=== PATIENT | female | born 1955 | race Caucasian/White ===

== ENCOUNTER 2021-01-19 17:28 | Emergency (ER) | payer MEDICARE, MEDICAID, SELFPAY ==
--- NOTE | ~2021-01-19 | CT_ITS ---
EXAMINATION: CT ABDOMEN AND PELVIS WITH CONTRAST CLINICAL INFORMATION: lower abd ttp >LLQ, +RLQ ttp COMPARISON: 01/17/2014 TECHNIQUE: Multidetector volumetric imaging was performed from the superior aspect of the liver through the pubic symphysis following administration of 85 cc of Omnipaque intravenous contrast Sagittal and coronal reformatted images were obtained on the technologist workstation.. This CT examination was performed using dose optimization techniques as appropriate, variously including the following: *Automated exposure control *Adjustment of mA and/or kV according to patient size (this includes techniques or standardized protocols for targeted exams where dose is matched to indication/reason for exam; i.e. extremities or head) *Use of iterative reconstruction technique DLP: 488 mGy-cm FINDINGS: LUNG BASES: Bibasilar dependent linear atelectasis or scarring. LIVER, GALLBLADDER, AND BILIARY TREE: The liver is normal in size, shape, and attenuation. No focal hepatic lesion or biliary ductal dilatation is present. Possible tiny adenomyomatosis of the gallbladder fundus PANCREAS: Unremarkable. SPLEEN: Unremarkable. ADRENAL GLANDS: Unremarkable. KIDNEYS AND URETERS: The kidneys are normal in size, shape, and attenuation. No hydronephrosis, hydroureter, or calculi seen. No perinephric stranding. BLADDER: Unremarkable. GASTROINTESTINAL TRACT: There is scattered colonic diverticulosis but no colonic wall thickening or pericolonic inflammatory change to suggest diverticulitis. Normal-appearing appendix in the right lower quadrant. Visualized small bowel is unremarkable ABDOMINAL WALL: No significant hernia is appreciated. LYMPHOVASCULAR STRUCTURES: No lymphadenopathy. The aorta is unremarkable. PELVIC VISCERA: Unremarkable. OSSEOUS STRUCTURES: Unremarkable. CT/CT abdomen pelvis w con IMPRESSION: Mild chronic appearing changes. No definitive acute intra-abdominal process.
[2021-01-19 17:32] VITALS: BP 168/76; PULSE 89; RESP 18; TEMP 36.5; O2SAT 99; BMI 26.6
[2021-01-19 18:09] LABS: MANUAL DIFF FLAG NO
[2021-01-19 18:13] LABS: Glucose Urine UA NEG (NEG); Leukocyte Esterase Urine NEG (NEG); Nitrite Urine NEG (NEG); Specific Gravity - Urine <= 1.005 (1.005-1.025); Urine Blood NEG (NEG); Urine Ketones NEG (NEG); Urine Protein NEG (NEG-TRACE)
[2021-01-19 18:14] LABS: Appearance Urine CLEAR; Color Urine STRAW
[2021-01-19 18:26] LABS: Basophils Percent Auto 0.5 % (0-2); Eosinophils Absolute Auto 0.2 X10*3/uL (0.0-0.4); Eosinophils Percent Auto 2.2 % (0-4); Hematocrit 39.5 % (37-47); Hemoglobin 12.9 g/dl (12.0-16.0); Imm Gran Abs Auto 0.02 X10*3/uL (0.00-0.03); Imm Gran Pct Auto 0.2 % (0.0-0.4); Lymphocytes Absolute Auto 3.3 X10*3/uL (1.2-4.9); Lymphocytes Percent Auto 40.8 % (20-40); Mean Corpuscular HGB Conc 32.7 g/dl (31.0-35.0); Mean Corpuscular Hemoglobin 28.9 pg (27.0-33.0); Mean Corpuscular Volume 88.6 fL (80-98); Mean Platelet Volume 9.8 fL (9.4-12.3); Monocytes Absolute Auto 0.9 X10*3/uL (0.1-1.2); Monocytes Percent Auto 10.5 % (2-11); Neutrophils Absolute Auto 3.7 X10*3/uL (2.0-8.3); Neutrophils Percent Auto 45.8 % (45-73); Platelet Count 308 X10*3/uL (160-400); Red Blood Count 4.46 X10*6/uL (4.20-5.50); Red Cell Distribution Width 13.3 % (11.0-16.0); White Blood Count 8.2 X10*3/uL (4.8-10.8)
[2021-01-19 18:36] LABS: Alanine Aminotransferase 19 U/L (0-31); Albumin Level 4.5 g/dL (3.5-5.0); Alkaline Phosphatase 133 U/L (39-117); Anion Gap 13 (12-20); Aspartate Amino Transferase 15 U/L (5-31); Bilirubin Total 0.6 mg/dL (0.0-1.0); Blood Urea Nitrogen 13 mg/dL (9-16); Carbon Dioxide 26 mmol/L (22-29); Chloride 107 mmol/L (96-108); Creatinine Clr Calc Pharmacy 64.9; Estimated Glomerular Filt Rate > 60; Glucose Random 86 mg/dL (60-115); Lipase 16 U/L (8-78); Potassium 3.9 mmol/L (3.3-5.1); Sodium 142 mmol/L (135-145); Total Protein 7.4 g/dL (6.5-8.0)
[2021-01-19 20:00] VITALS: BP 150/68; PULSE 76; RESP 16; O2SAT 99
[2021-01-19] MEDS: 0.9 % Sodium Chloride 1,000 ML 999 ML IVCONT (20:23)
[2021-01-19] MEDS: Ketorolac Tromethamine 15 MG/ML VIAL IVPUSH (20:28)
[2021-01-19] MEDS: iohexoL 350 MG/ML 100 ML INFUS..BTL IV (21:03)
--- NOTE | 2021-01-19 21:45 | ED.ABDPAIN ---
HPI - Abdominal Pain General Chief Complaint: Abdominal Pain Stated Complaint: abd pain Time Seen by Provider: 01/19/21 20:00 Source: patient Mode of arrival: ambulatory History of Present Illness HPI narrative: 65-year-old female with a past medical history of fibromyalgia, hyperlipidemia, hypertension, presenting to the ED complaining of lower abdominal discomfort worsening over the past 3 days with radiation from right flank to right lower extremity. Also reports dysuria. Denies fever, chills, nausea/vomiting, diarrhea, constipation, hematuria MD elicited complaint: abdominal pain Related Data Previous Rx's Medication Instructions Recorded dicyclomine 20 mg PO QID PRN #14 tab 01/19/21 Allergies Allergy/AdvReac Type Severity Reaction Status Date / Time No Known Allergies Allergy Verified 01/19/21 17:31 Review of Systems Review of Systems Constitutional: No Fever, No Chills Cardiovascular: No Chest Pain, No SOB Respiratory: No Cough, No Dyspnea Gastrointestinal: No Nausea, No Vomiting, No Diarrhea, No Constipation, + Abdominal pain Genitourinary: No irregular bleeding, + Dysuria, No Urinary Frequency, No Hematuria, No Urinary Incontinence, + Flank Pain Musculoskeletal: No joint pain, No Myalgias, No Joint Swelling Skin: No Skin Lesions, No rash Neuro: No Weakness, No Numbness Yes all other systems are reviewed and are negative Physical Exam Vital Signs: Vital Signs: Last Vital Signs Temp 97.7 F 01/19/21 17:32 Pulse 76 01/19/21 20:00 Resp 16 01/19/21 20:00 BP 150/68 H 01/19/21 20:00 Pulse Ox 99 01/19/21 20:00 Body Mass Index 26.6 Const: General: cooperative, healthy appearing and no acute distress Orientation/consciousness: patient oriented x3 Limitations: no limitations HENMT: Head: Yes normal to inspection Ears: hearing grossly normal bilaterally General nose exam: Normal external nose present Face and sinus: Yes normal facial exam Eyes: General: appearance normal, both eyes and all related structures EOM: EOMs intact bilaterally Neck: Neck: Yes normal visual inspection Resp: Effort & Inspection: normal respiratory effort Cardio: Rate: regular rate GI: Inspection: Yes normal to inspection Palpation (GI): Soft to palpation, Tenderness to palpation present (GI) (lower abdomen) in the LLQ, no guarding and not rigid : General: Yes no CVA tenderness Back/Spine/Pelvis: Back: no CVA tenderness Skin: Rashes: no rashes Wounds: no wounds Neuro: General: patient oriented x3 Gait exam (Neuro): Normal gait present Extrem: General: Yes normal to inspection Course Course Course Narrative: -no leukocytosis, labs otherwise unremarkable, UA negative CT abdomen pelvis w con IMPRESSION: Mild chronic appearing changes. No definitive acute intra-abdominal process. >> results discussed with patient and daughter at bedside including worrisome signs and symptoms and strict return precautions. Patient verbalized understanding feel safe for discharge home MDM - Abdominal Pain MDM Narrative Medical decision making narrative: 65-year-old female with a past medical history of fibromyalgia, hyperlipidemia, hypertension, presenting to the ED complaining of lower abdominal discomfort worsening over the past 3 days with radiation from right flank to right lower extremity. On exam VSS, NAD/appearing him abdomen soft with lower/LLQ ttp, no rebound or guarding, no CVAT. Concern for diverticulitis vs appendicitis vs renal stone vs UTI/pyelo. Unlikely pancreatitis/cholecystitis or lithiasis Plan: Labs, UA, CT AP, IVF, reassess Medical Records Attestation: I reviewed the patient's medical records. Lab Data Attestation: I reviewed the patient's lab results. Result diagrams: 01/19/21 18:03 01/19/21 18:03 Labs: Lab Results 01/19/21 01/19/21 01/19/21 Range/Units 18:03 18:03 18:03 WBC 8.2 (4.8-10.8) X10*3/uL RBC 4.46 (4.20-5.50) X10*6/uL Hgb 12.9 (12.0-16.0) g/dl Hct 39.5 (37-47) % MCV 88.6 (80-98) fL MCH 28.9 (27.0-33.0) pg MCHC 32.7 (31.0-35.0) g/dl RDW 13.3 (11.0-16.0) % Plt Count 308 (160-400) X10*3/uL MPV 9.8 (9.4-12.3) fL Immature Gran % (Auto) 0.2 (0.0-0.4) % Neut % (Auto) 45.8 (45-73) % Lymph % (Auto) 40.8 H (20-40) % [place] % (Auto) 10.5 (2-11) % Eos % (Auto) 2.2 (0-4) % Baso % (Auto) 0.5 (0-2) % Lymph # (Auto) 3.3 (1.2-4.9) X10*3/uL [place] # (Auto) 0.9 (0.1-1.2) X10*3/uL Eos # (Auto) 0.2 (0.0-0.4) X10*3/uL Baso # (Auto) 0.0 (0.0-0.2) X10*3/uL Abs Immat Gran (auto) 0.02 (0.00-0.03) X10*3/uL Absolute Neuts (auto) 3.7 (2.0-8.3) X10*3/uL Absolute Nucleated RBC 0.000 (0.0-0.012) X10*3/uL Nucleated RBC % (auto) 0.0 (0.0-0.2) /100WBC Hold Blue Top SEE NOTE Sodium (135-145) mmol/L Potassium (3.3-5.1) mmol/L Chloride (96-108) mmol/L Carbon Dioxide (22-29) mmol/L Anion Gap (12-20) BUN (9-16) mg/dL Creatinine (0.5-1.4) mg/dL Estim Creat Clear Calc Estimated GFR Random Glucose (60-115) mg/dL Calcium (8.4-10.2) mg/dL Total Bilirubin (0.0-1.0) mg/dL AST (5-31) U/L ALT (0-31) U/L Alkaline Phosphatase (39-117) U/L Total Protein (6.5-8.0) g/dL Albumin (3.5-5.0) g/dL Lipase 16 (8-78) U/L Urine Color Urine Appearance Urine pH (5.0-8.0) Ur Specific [place] (1.005-1.025) Urine Protein (NEG-TRACE) MG/DL Urine Glucose (UA) (NEG) MG/DL Urine Ketones (NEG) MG/DL Urine Blood (NEG) Urine Nitrite (NEG) Ur Leukocyte Esterase (NEG) 01/19/21 01/19/21 Range/Units 18:03 18:03 WBC (4.8-10.8) X10*3/uL RBC (4.20-5.50) X10*6/uL Hgb (12.0-16.0) g/dl Hct (37-47) % MCV (80-98) fL MCH (27.0-33.0) pg MCHC (31.0-35.0) g/dl RDW (11.0-16.0) % Plt Count (160-400) X10*3/uL MPV (9.4-12.3) fL Immature Gran % (Auto) (0.0-0.4) % Neut % (Auto) (45-73) % Lymph % (Auto) (20-40) % [place] % (Auto) (2-11) % Eos % (Auto) (0-4) % Baso % (Auto) (0-2) % Lymph # (Auto) (1.2-4.9) X10*3/uL [place] # (Auto) (0.1-1.2) X10*3/uL Eos # (Auto) (0.0-0.4) X10*3/uL Baso # (Auto) (0.0-0.2) X10*3/uL Abs Immat Gran (auto) (0.00-0.03) X10*3/uL Absolute Neuts (auto) (2.0-8.3) X10*3/uL Absolute Nucleated RBC (0.0-0.012) X10*3/uL Nucleated RBC % (auto) (0.0-0.2) /100WBC Hold Blue Top Sodium 142 (135-145) mmol/L Potassium 3.9 (3.3-5.1) mmol/L Chloride 107 (96-108) mmol/L Carbon Dioxide 26 (22-29) mmol/L Anion Gap 13 (12-20) BUN 13 (9-16) mg/dL Creatinine 0.75 (0.5-1.4) mg/dL Estim Creat Clear Calc 64.9 Estimated GFR > 60 Random Glucose 86 (60-115) mg/dL Calcium 10.0 (8.4-10.2) mg/dL Total Bilirubin 0.6 (0.0-1.0) mg/dL AST 15 (5-31) U/L ALT 19 (0-31) U/L Alkaline Phosphatase 133 H (39-117) U/L Total Protein 7.4 (6.5-8.0) g/dL Albumin 4.5 (3.5-5.0) g/dL Lipase (8-78) U/L Urine Color STRAW Urine Appearance CLEAR Urine pH 6.0 (5.0-8.0) Ur Specific [place] <= 1.005 (1.005-1.025) Urine Protein NEG (NEG-TRACE) MG/DL Urine Glucose (UA) NEG (NEG) MG/DL Urine Ketones NEG (NEG) MG/DL Urine Blood NEG (NEG) Urine Nitrite NEG (NEG) Ur Leukocyte Esterase NEG (NEG) Discharge Plan Discharge Clinical Impression: Abdominal pain Qualifiers: Abdominal location: lower abdomen, unspecified Qualified Code(s): R10.30 - Lower abdominal pain, unspecified Patient Disposition: Home, Self-Care Instructions: Abdominal Pain (ED) Additional Instructions: Your blood work and CT scan were unremarkable today in the ED It is important that you follow up with her primary care doctor Elvin is in abdominal antispasmodic agent, take as needed for abdominal discomfort. In addition take Tylenol Motrin. If her symptoms persist or worsen, become more constant/unbearable, persistent nausea/vomiting or developed fever please return to the ED immediately Prescriptions: New dicyclomine 20 mg tablet 20 mg PO QID PRN (Reason: pain) Qty: 14 RF: 0 Referrals: Dorinda Salgado MD [Primary Care Provider] - 2 days PMF Past Medical History Attestation statement: The following information was validated with the patient. Medical History (Updated 01/19/21 @ 21:48 by SMITH Barrett) Fibromyalgia Hard of hearing High cholesterol HTN (hypertension) Social History Social History Advance Directives: No Patient : No
[2021-01-19 22:00] VITALS: BP 148/68; PULSE 76; RESP 16; TEMP 36.5; O2SAT 99
== END 2021-01-19 22:33 | disposition home or self-care (01) ==
PROVIDERS: Emergency Provider Internal Medicine; PCP Internal Medicine
DX: R10.30 Lower abdominal pain, unspecified (principal); I10 Essential (primary) hypertension; E78.5 Hyperlipidemia, unspecified
CPT/HCPCS: 36415; 74177; 80053; 81003; 83690; 85025; 96361; 96374; 99284; J1885; Q9967

== ENCOUNTER 2023-08-30 18:48 | Emergency (ER) | payer MEDICARE, MEDICAID, SELFPAY ==
[2023-08-30 19:03] VITALS: BP 154/88; BP 164/70; PULSE 87; PULSE 97; RESP 18; TEMP 37.1; O2SAT 97; BMI 26.6
--- NOTE | 2023-08-30 19:05 | ED.GENADULT ---
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 ? Patient indicates the right ear is the 1 bothering her. Her pain is 04/21 Related Data Home Medications Medication Instructions Recorded Confirmed citalopram 10 mg tablet 1 tab PO DAILY 11/17/21 06/24/23 varenicline 0.5 mg (11)-1 mg (42) See Rx Instructions PO PER PKG DIR 11/18/22 06/24/23 tablets in a dose pack (Chantix Starting Month Box) Previous Rx's Medication Instructions Recorded alendronate 70 mg tablet 70 mg PO QWEEK #14 tabs 01/13/23 zolpidem 10 mg tablet 10 mg PO BEDTIME PRN insomnia 30 04/01/23 days #90 tabs varenicline 1 mg tablet (Chantix 1 mg PO BID #56 tabs 06/13/23 Continuing Month Box) bictegravir 50 mg-emtricitabine 1 tab PO DAILY 30 days #30 tabs 07/08/23 200 mg-tenofovir alafenam 25 mg tablet (Biktarvy) BOOST VANILLA #60 ea 07/18/23 fluticasone propionate 50 2 spray intranasal DAILY #16 grams 08/26/23 mcg/actuation nasal spray,suspension (Flonase Allergy Relief) amoxicillin 500 mg capsule 500 mg PO TID #15 caps 08/30/23 Allergies Allergy/AdvReac Type Severity Reaction Status Date / Time No Known Allergies Allergy Verified 08/29/23 11:56 [No Known Allergies*] Review of Systems Constitutional: Constitutional: Denies chills, Denies fever(s) and Denies headache(s) ENT: Reports ear discharge, Reports otalgia and Denies headache(s) Cardiovascular: Cardiovascular: Denies dyspnea Respiratory: Respiratory: Reports cough and Denies dyspnea Gastrointestinal: Gastrointestinal: Denies abdominal pain, Denies nausea and Denies vomiting Neurologic: Denies headache(s) PMFSH Past Medical History Medical History Cough Well woman exam Skin cancer Hx LEEP (loop electrosurgical excision procedure), cervix, Tobacco abuse Osteoporosis ARIELLE II (cervical intraepithelial neoplasia II) Hypertriglyceridemia Insomnia Carpal tunnel syndrome, left HIV (human immunodeficiency virus infection) Surgical History Hx of colonoscopy History of orthopedic surgery History of surgery History of tubal ligation Family History Family History Father Lung cancer Mother Colon cancer CVD (cardiovascular disease) Stroke Maternal Grandmother Uterine cancer Sister Breast cancer Social History Social History Household Members: Spouse and Children Housing: Apartment Are you a primary eye care professional to a significant other at home: No Do you presently have visiting nurse or other home services: No Alcohol intake: never Comment: medicated in pacu Patient Tobacco Use Status: Former Tobacco user Quit Date: 02/2023 Tobacco use type: Cigarette Cigarettes Per Day: 3 Years Smoked: 20 stopped mid February 2023 e-Cigarette/Vaping Use: Never Used Second Hand Smoke Exposure: No service: No Current occupational status: disabled Cognitive needs: No Hearing needs: No Vision needs: Yes Physical Exam ED Const General: healthy appearing, comfortable, no acute distress, alert and awake Nutritional Appearance: well nourished Orientation/consciousness: patient oriented x3 HENMT Head: Yes normocephalic and Yes atraumatic Ears: right TM abnormal (TM rupture on right, no drainage), TM normal on the left and EAC's normal Eyes Eyelids: Yes eyelids normal Conjunctivae: conjunctivae normal Sclerae: sclerae normal Corneas: corneas normal Pupils: Equal, round and reactive pupils present EOM: EOMs intact bilaterally Neck Neck: Yes full ROM Resp Effort & Inspection: normal respiratory effort, able to speak in complete sentences, no audible wheezes and not labored Auscultation: clear to auscultation bilaterally Skin General skin exam: elasticity normal Neuro General: patient oriented x3 Cranial nerves: Yes Equal, round and reactive pupils present and Yes Bilaterally intact EOM present Cognition (Neuro): normal cognition Extrem Other: Moving all extremities well without any obvious deformities Medical Decision Making Medical Decision Making MDM Narrative: 67-year-old female presents for evaluation of right ear pain. On exam she has a right tympanic membrane rupture. She will be discharged with amoxicillin. Given return precautions. She will follow-up with ENT outpatient Differential Diagnosis Differential Diagnoses: The differential diagnosis associated with the presentation includes COVID-19 Tympanic membrane rupture Otitis media Otitis externa Discharge Plan Discharge Clinical Impression: COVID-19, Rupture of right tympanic membrane Patient Disposition: Home, Self-Care Instructions: Ruptured Eardrum (ED) Additional Instructions: You ruptured the eardrum on the right Do not get any water or stick anything including Q-tips in the right ear Take amoxicillin 3 times daily for 5 days Follow-up with Dr. Simmons, ENT Prescriptions: New amoxicillin 500 mg capsule 500 mg PO TID Qty: 15 0RF No Action zolpidem 10 mg tablet 10 mg PO BEDTIME PRN (Reason: insomnia) 30 Days Qty: 90 1RF varenicline [Chantix Continuing Month Box] 1 mg tablet 1 mg PO BID Qty: 56 1RF Biktarvy 50-200-25 mg tablet 1 tab PO DAILY 30 Days Qty: 30 3RF (DME) BOOST VANILLA See Rx Instructions .Route .MEDSUPPLY Qty: 60 12RF Rx Instructions: As directed fluticasone propionate [Flonase Allergy Relief] 50 mcg/actuation spray,suspension 2 spray intranasal DAILY Qty: 16 3RF Rx Instructions: administer into each nostril citalopram 10 mg tablet 1 tab PO DAILY varenicline [Chantix Starting Month Box] 0.5 mg (11)- 1 mg (42) tablets,dose pack See Rx Instructions PO PER PKG DIR Rx Instructions: PO PER PKG DIR alendronate 70 mg tablet 70 mg PO QWEEK Qty: 14 3RF Referrals: Richard Verdin [Physician] - (ruptured TM right)
== END 2023-08-30 21:15 | disposition home or self-care (01) ==
LOC: HO.ED 19:22
PROVIDERS: Emergency Provider Internal Medicine
DX: U07.1 COVID-19 (principal); H72.91 Unspecified perforation of tympanic membrane, right ear; B20 Human immunodeficiency virus [HIV] disease
CPT/HCPCS: 99282; 99283

== ENCOUNTER 2024-01-05 16:57 | Emergency (ER) | payer OTHER, SELFPAY ==
--- NOTE | ~2024-01-05 | CT_ITS ---
EXAMINATION: CT ABDOMEN AND PELVIS WITH CONTRAST CLINICAL INFORMATION: Abdominal pain. COMPARISON: 01/19/2021 TECHNIQUE: Multidetector volumetric images were obtained from the superior aspect of the liver through the pubic symphysis following administration 85 mL of Omnipaque 350 intravenous contrast. Sagittal and coronal reformatted images were obtained on the technologist's workstation. Oral contrast: No This CT examination was performed using dose optimization techniques as appropriate, variously including the following: *Automated exposure control *Adjustment of mA and/or kV according to patient size (this includes techniques or standardized protocols for targeted exams where dose is matched to indication/reason for exam; i.e. extremities or head) *Use of iterative reconstruction technique DLP: 454 mGy-cm FINDINGS: LUNG BASES: There is scarring at both lung bases. LIVER, GALLBLADDER, AND BILIARY TREE: The liver is normal in size, shape, and attenuation. No focal hepatic lesion or biliary ductal dilatation is present. The gallbladder is unremarkable with no evidence of radiopaque gallstones, gallbladder wall thickening, or obvious pericholecystic inflammatory changes. PANCREAS: Unremarkable. SPLEEN: Unremarkable. ADRENAL GLANDS: Unremarkable. KIDNEYS AND URETERS: The kidneys are normal in size, shape, and attenuation. No hydronephrosis, hydroureter, or calculi seen. No perinephric stranding. BLADDER: Unremarkable. GASTROINTESTINAL TRACT: Diffuse diverticulosis without evidence for acute diverticulitis. The appendix is visualized and is within normal limits. ABDOMINAL WALL: No significant hernia is appreciated. LYMPH NODES: Normal. VASCULAR: Unremarkable. PELVIC VISCERA: Unremarkable. OSSEOUS STRUCTURES: Unremarkable. CT/CT abdomen pelvis w IV con IMPRESSION: 1. No acute abnormality within the abdomen or pelvis. 2. Diverticulosis without evidence for acute diverticulitis. Fleischner guidelines were followed.
--- NOTE | ~2024-01-05 | XR_ITS ---
EXAMINATION: XR ABDOMEN KUB CLINICAL INDICATION: Constipation x6 days. COMPARISON: None available. TECHNIQUE: AP view of the abdomen. FINDINGS: There is abundant stool throughout the left side of the colon. There are no dilated loops of bowel to indicate obstruction. The sacroiliac joints and symphysis pubis are maintained. There is mild degenerative disease of the hips bilaterally. XR/XR KUB IMPRESSION: Nonobstructive bowel gas pattern. Abundant stool throughout the left colon.
[2024-01-05 17:16] VITALS: BP 155/68; PULSE 86; RESP 18; TEMP 36.6; O2SAT 96; BMI 26.1
--- NOTE | 2024-01-05 17:20 | ED.GENADULT ---
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 Patient reports that she has chronic constipation. She saw her primary doctor 13 days ago for constipation. She was prescribed Bentyl, Imodium if she has loose stools, MiraLax, and Senokot Patient reports that she stopped all medications because ?they were not helping. ? She reports that she use them for 3 days It seems that the patient did not understand that she was not supposed to use the Imodium unless she had loose stool She reports abdominal pain that radiates around to her back on both sides Denies any fevers, chills Denies any burning with urination She is continuing to pass gas Related Data Home Medications ?Medication ?Instructions ?Recorded ?Confirmed pregabalin 25 mg capsule 50 mg PO BID 01/05/24 01/05/24 Previous Rx's ?Medication ?Instructions ?Recorded dicyclomine 20 mg tablet 20 mg PO QID PRN pain #14 tabs 01/19/21 amoxicillin 500 mg capsule 500 mg PO TID #15 caps 08/30/23 lactulose 20 gram oral packet 20 g PO DAILY PRN constipation #14 01/06/24 ea Allergies Allergy/AdvReac Type Severity Reaction Status Date / Time No Known Allergies Allergy Verified 01/05/24 17:17 [No Known Allergies*] Review of Systems Constitutional: Constitutional: Denies chills and Denies fever(s) ENT: Denies sore throat Cardiovascular: Cardiovascular: Denies chest pain and Denies dyspnea Respiratory: Respiratory: Denies cough and Denies dyspnea Gastrointestinal: Gastrointestinal: Reports abdominal pain, Denies melena, Reports constipation, Denies nausea and Denies vomiting Musculoskeletal: Musculoskeletal: Reports back pain Integumentary/Breasts: Skin/Breast: Denies rash PMFSH Past Medical History Medical History (Updated 01/05/24 @ 23:43 by Kel Garcia) Cough Well woman exam Skin cancer Hx LEEP (loop electrosurgical excision procedure), cervix, Tobacco abuse Osteoporosis ARIELLE II (cervical intraepithelial neoplasia II) Hypertriglyceridemia Insomnia Carpal tunnel syndrome, left HIV (human immunodeficiency virus infection) High cholesterol HTN (hypertension) Fibromyalgia Hard of hearing Surgical History (Updated 08/30/23 @ 20:32 by Chloe Erazo) Hx of colonoscopy History of orthopedic surgery History of surgery History of tubal ligation Social History Social History Smoked in Last 30 Days: No Use of substances other than those prescribed or required for medical reasons: No Advance Directives: No Advance Directives Information Provided: No Do you have a plan to hurt others: No Plan Physical Exam ED Vital Signs: Vital Signs - 24 hr 01/05/24 17:16 01/05/24 21:05 01/05/24 22:32 Temperature 97.9 F 97 F 98.2 F Pulse Rate 86 88 71 Respiratory Rate 18 18 18 Blood Pressure 155/68 H 145/57 H 160/75 H Pulse Oximetry 96 96 98 Oxygen Delivery Method Room Air Room Air Room Air 01/06/24 00:15 01/06/24 02:44 Temperature 97.6 F 97.9 F Pulse Rate 75 77 Respiratory Rate 18 18 Blood Pressure 141/72 H 130/59 L Pulse Oximetry 96 96 Oxygen Delivery Method Room Air Room Air BMI result Body Mass Index 26.1 Const General: healthy appearing, comfortable, no acute distress, alert and awake Nutritional Appearance: well nourished Orientation/consciousness: patient oriented x3 HENMT Head: Yes normocephalic and Yes atraumatic Eyes Eyelids: Yes eyelids normal Conjunctivae: conjunctivae normal Sclerae: sclerae normal Corneas: corneas normal Pupils: Equal, round and reactive pupils present EOM: EOMs intact bilaterally Neck Neck: Yes full ROM Resp Effort & Inspection: normal respiratory effort, able to speak in complete sentences and not labored Cardio Rate: regular rate Rhythm: regular rhythm GI Inspection: No distended Palpation (GI): Soft to palpation, not firm, nontender, no guarding and not rigid Skin General skin exam: elasticity normal Neuro General: patient oriented x3 Cranial nerves: Yes Equal, round and reactive pupils present and Yes Bilaterally intact EOM present Cognition (Neuro): normal cognition Extrem Other: Moving all extremities well without any obvious deformities Course Course Course Narrative: This is a rapid medical exam: Additional HPI, ROS, PE not included below will be deferred to primary provider. Patient is a 68-year-old female presenting to the emergency department with complaint of constipation, no bowel movement for the past 6 days. Symptoms not improved with [id number] medications. Plan: KUB Reevaluation(s) Reevaluation #1: The patient was signed out to me by the physician special education educational assistant pending the results of a CT scan of the abdomen and pelvis. The CT scan reading took awhile but ultimately came back as showing no acute process. I went to see the patient. She had fallen soundly asleep. I explained that the CT scan did not show any alarming findings and that we could continue with the plan for her to be discharged with a course of lactulose to help with any possible degree of constipation. The patient seemed comfortable with this plan. Time: 04:45 Medications Administered Discontinued Medications Generic Name Dose Route Start Last Admin Trade Name Freq PRN Reason Stop Dose Admin Iohexol 85 ml 01/05/24 23:32 01/05/24 23:32 Iohexol 350 Mg/Ml 100 Ml Infus..Btl IV 01/05/24 23:33 85 ml ONCE ONE Administration Medical Decision Making Medical Decision Making [facility] Narrative: 68-year-old female presents for evaluation of constipation, abdominal pain. She does report a history of chronic constipation. Based on history it seems that she has been using the Imodium in addition to the MiraLax and Senokot. I educated the patient on this. She has outpatient discharge instructions from her PCP who recommended a CT scan of the abdomen pelvis. Given the the patient presents with worsening abdominal pain and constipation I ordered the CT scan of the abdomen pelvis. Her KUB shows left-sided constipation. There is no stool ball or obstructive pattern Differential Diagnosis Differential Diagnoses: The differential diagnosis associated with the presentation includes Constipation Fecal impaction Bowel obstruction Medication noncompliance Lab Data [facility] Lab Attestation statement: I reviewed the patient's lab results. No leukocytosis or anemia. Normal platelet count. No significant electrolyte abnormalities. Renal function within normal limits 01/05/24 22:32 01/05/24 22:32 Labs: Lab Results 01/05/24 Range/Units 22:32 WBC 7.8 (4.8-10.8) X10*3/uL RBC 4.36 (4.20-5.50) X10*6/uL Hgb 12.7 (12.0-16.0) g/dl Hct 38.0 (37.0-47.0) % MCV 87.2 (80.0-98.0) fL MCH 29.1 (27.0-33.0) pg MCHC 33.4 (31.0-35.0) g/dl RDW 13.2 (11.0-16.0) % Plt Count 230 (160-400) X10*3/uL MPV 9.7 (9.4-12.3) fL Immature Gran % (Auto) 0.1 (0.0-0.4) % Neut % (Auto) 49.1 (45-73) % Lymph % (Auto) 38.5 (20-40) % [place] % (Auto) 10.4 (2-11) % Eos % (Auto) 1.5 (0-4) % Baso % (Auto) 0.4 (0-2) % Lymph # (Auto) 3.0 (1.2-4.9) X10*3/uL [place] # (Auto) 0.8 (0.1-1.2) X10*3/uL Eos # (Auto) 0.1 (0.0-0.4) X10*3/uL Baso # (Auto) 0.0 (0.0-0.2) X10*3/uL Abs Immat Gran (auto) 0.01 (0.00-0.03) X10*3/uL Absolute Neuts (auto) 3.8 (2.0-8.3) x10*3/uL Absolute Nucleated RBC 0.000 (0.0-0.012) X10*3/uL Nucleated RBC % (auto) 0.0 (0.0-0.2) /100WBC Sodium 143 (135-145) mmol/L Potassium 4.0 (3.3-5.1) mmol/L Chloride 111 H (96-108) mmol/L Carbon Dioxide 26 (22-29) mmol/L Anion Gap 10 L (12-20) BUN 9 (9-16) mg/dL Creatinine 0.70 (0.5-1.4) mg/dL Estim Creat Clear Calc 68.9 Estimated GFR > 60 Random Glucose 150 H (60-115) mg/dL Calcium 9.7 (8.4-10.2) mg/dL Total Bilirubin 0.5 (0.0-1.0) mg/dL AST 17 (5-31) U/L ALT 17 (0-31) U/L Alkaline Phosphatase 109 (39-117) U/L Total Protein 7.1 (6.5-8.0) g/dL Albumin 4.1 (3.5-5.0) g/dL Lipase 40 (8-78) U/L Independent Interpretation I performed an independent interpretation of an: Plain X-Ray (Agree with Radiology interpretation, left-sided stool burden.) Radiology Impression Discussion of test interpretation with radiology: I have reviewed the radiologist's reading. (Nonobstructive bowel gas pattern. Abundant stool in the left colon) Discharge Plan Discharge Clinical Impression: Constipation Patient Disposition: Home, Self-Care Instructions: Constipation (ED) Additional Instructions: Continue taking MiraLax every night for the next 2 weeks. Increase fluid and fiber intake in your diet. Stop using the Imodium You may use lactulose as needed until you have more than 3 bowel movements Follow-up with your primary doctor, return for new or worsening symptoms Prescriptions: New lactulose 20 gram packet 20 g PO DAILY PRN (Reason: constipation) Qty: 14 0RF No Action dicyclomine 20 mg tablet 20 mg PO QID PRN (Reason: pain) Qty: 14 0RF amoxicillin 500 mg capsule 500 mg PO TID Qty: 15 0RF pregabalin 25 mg capsule 50 mg PO BID Print Language: Kuwaiti
[2024-01-05 21:05] VITALS: BP 145/57; PULSE 88; RESP 18; TEMP 36.1; O2SAT 96
[2024-01-05 22:32] VITALS: BP 160/75; PULSE 71; RESP 18; TEMP 36.8; O2SAT 98
[2024-01-05 22:36] LABS: MANUAL DIFF FLAG NO
[2024-01-05 22:37] LABS: Basophils Percent Auto 0.4 % (0-2); Eosinophils Absolute Auto 0.1 X10*3/uL (0.0-0.4); Eosinophils Percent Auto 1.5 % (0-4); Hemoglobin 12.7 g/dl (12.0-16.0); Imm Gran Abs Auto 0.01 X10*3/uL (0.00-0.03); Imm Gran Pct Auto 0.1 % (0.0-0.4); Lymphocytes Percent Auto 38.5 % (20-40); Mean Corpuscular HGB Conc 33.4 g/dl (31.0-35.0); Mean Corpuscular Hemoglobin 29.1 pg (27.0-33.0); Mean Corpuscular Volume 87.2 fL (80.0-98.0); Mean Platelet Volume 9.7 fL (9.4-12.3); Monocytes Absolute Auto 0.8 X10*3/uL (0.1-1.2); Monocytes Percent Auto 10.4 % (2-11); Neutrophils Absolute Auto 3.8 x10*3/uL (2.0-8.3); Neutrophils Percent Auto 49.1 % (45-73); Platelet Count 230 X10*3/uL (160-400); Red Blood Count 4.36 X10*6/uL (4.20-5.50); Red Cell Distribution Width 13.2 % (11.0-16.0); White Blood Count 7.8 X10*3/uL (4.8-10.8)
[2024-01-05 22:50] LABS: Alanine Aminotransferase 17 U/L (0-31); Albumin Level 4.1 g/dL (3.5-5.0); Alkaline Phosphatase 109 U/L (39-117); Anion Gap 10 (12-20); Aspartate Amino Transferase 17 U/L (5-31); Bilirubin Total 0.5 mg/dL (0.0-1.0); Blood Urea Nitrogen 9 mg/dL (9-16); Calcium 9.7 mg/dL (8.4-10.2); Carbon Dioxide 26 mmol/L (22-29); Chloride 111 mmol/L (96-108); Creatinine Clr Calc Pharmacy 68.9; Estimated Glomerular Filt Rate > 60; Glucose Random 150 mg/dL (60-115); Lipase 40 U/L (8-78); Sodium 143 mmol/L (135-145); Total Protein 7.1 g/dL (6.5-8.0)
[2024-01-05] MEDS: iohexoL 350 MG/ML 100 ML INFUS..BTL 85 ML IV (23:32)
[2024-01-06 00:15] VITALS: BP 141/72; PULSE 75; RESP 18; TEMP 36.4; O2SAT 96
[2024-01-06 02:44] VITALS: BP 130/59; PULSE 77; RESP 18; TEMP 36.6; O2SAT 96
[2024-01-06 04:50] VITALS: BP 116/55; PULSE 77; RESP 18; TEMP 36.5; O2SAT 94
[2024-01-06 04:52] VITALS: BP 116/55; PULSE 77; RESP 18; TEMP 36.5; O2SAT 94
== END 2024-01-06 05:04 | disposition home or self-care (01) ==
PROVIDERS: Physician Assistant; Emergency Provider Emergency Medicine
DX: K59.00 Constipation, unspecified (principal); R10.9 Unspecified abdominal pain; R10.2 Pelvic and perineal pain; Z79.899 Other long term (current) drug therapy
CPT/HCPCS: 36415; 74018; 74177; 80053; 83690; 85025; 99284; Q9967

== ENCOUNTER 2025-05-03 10:37 | Emergency (ER) | payer OTHER, SELFPAY ==
[2025-05-03 10:42] VITALS: BP 176/100; PULSE 73; O2SAT 106
[2025-05-03 10:45] VITALS: BP 169/76; PULSE 80; RESP 16; TEMP 36.7; O2SAT 96
[2025-05-03 10:53] VITALS: BMI 25.6
[2025-05-03 11:40] VITALS: BP 170/89; PULSE 76; RESP 16; O2SAT 97
--- NOTE | 2025-05-03 11:55 | ED.GENADULT ---
HPI - General Adult General Chief complaint: General Medical Stated complaint: ABD PAIN Time Seen by Provider: 05/03/25 11:02 History of Present Illness ED Provider: Dr. Garcia HPI narrative: This is a 69-year-old female history of hypertension hypertryglyceredemia presented hospital today for evaluation of rectal bleeding. Patient states she had 2 bowel movement today. She had hard bowel movement. She does feel constipated. She stated that after passing the 1st bowel movement there is some red blood in the toilet. Patient stated the 2nd bowel movement has less blood. She state she has 2 hemorrhoids in her rectum. She did not follow any doctor for this. She has not taken any medication for this. Patient had a recent colonoscopy within 5 years. She normally does colonoscopy every 5 years with her doctor . She is nervous that she may have colon cancer. She states her mom from colon cancer. Related Data Home Medications ?Medication ?Instructions ?Recorded ?Confirmed pregabalin 25 mg capsule 50 mg PO BID 01/05/24 01/05/24 Previous Rx's ?Medication ?Instructions ?Recorded dicyclomine 20 mg tablet 20 mg PO QID PRN pain #14 tabs 01/19/21 amoxicillin 500 mg capsule 500 mg PO TID #15 caps 08/30/23 lactulose 20 gram oral packet 20 g PO DAILY PRN constipation #14 01/06/24 ea hydrocortisone 2.5 % topical cream 1 appl topical BID PRN skin 05/03/25 irritation #20 grams sennosides 8.6 mg capsule (senna) 8.6 mg PO DAILY 30 days #30 caps 05/03/25 Allergies Allergy/AdvReac Type Severity Reaction Status Date / Time No Known Allergies (No Known Allergy Verified 05/03/25 10:54 Allergies*) Review of Systems Review of Systems: Pertinent review of systems as mentioned in HPI. All other system otherwise negative. ON LICENSE OF [facility] Past Medical History ON LICENSE OF [facility] Narrative: Medical history as mentioned in HPI Medical History (Updated 05/03/25 @ 13:49 by Teresa Garcia DO) Cough Well woman exam Skin cancer Hx LEEP (loop electrosurgical excision procedure), cervix, Tobacco abuse Osteoporosis ARIELLE II (cervical intraepithelial neoplasia II) Hypertriglyceridemia Insomnia Carpal tunnel syndrome, left HIV (human immunodeficiency virus infection) High cholesterol HTN (hypertension) Fibromyalgia Hard of hearing Surgical History (Updated 08/30/23 @ 20:32 by Chloe Erazo) Hx of colonoscopy History of orthopedic surgery History of surgery History of tubal ligation Social History Social History Smoked in Last 30 Days: No Use of substances other than those prescribed or required for medical reasons: No Advance Directives: No Advance Directives Information Provided: Yes Do you have a plan to hurt others: No Plan Physical Exam ED Exam Exam: General: Pleasant, no distress, interacting appropriately Head: Normacephalic, atraumatic ENT: oral mucosa moist, neck supple, no tracheal deviation Gastrointestinal: Soft, non distended, non tender, non guarding : 2 hemrrhoids identifed at te 12 o clock and 6 o clock position. No signs of active rectal bleeding. Rectal exam perform with obstetrics technician as commercial loan analyst. Neurological: Awake and alert, no facial droop noted Skin: Warm and dry Psychiatric: Appropriate mood and thoughts Vital Signs: Vital Signs - 24 hr 05/03/25 10:45 05/03/25 11:40 05/03/25 12:00 Temperature 98.1 F 98.0 F Pulse Rate 80 76 74 Respiratory Rate 16 16 19 Blood Pressure 169/76 H 170/89 H 179/80 H Pulse Oximetry 96 97 99 Oxygen Delivery Method Room Air Room Air Room Air BMI result Body Mass Index 25.6 Medications Administered Discontinued Medications Generic Name Dose Route Start Last Admin Trade Name Freq PRN Reason Stop Dose Admin Hydrocortisone 1 appl 05/03/25 11:53 05/03/25 12:39 Hydrocortisone 2.5 % Rectal Cr 30 Gm Tube NV 05/03/25 11:54 1 appl ONCE ONE Administration Senna 8.6 mg 05/03/25 11:54 05/03/25 12:01 Sennosides 8.6 Mg Tablet PO 05/03/25 11:55 8.6 mg ONCE ONE Administration Medical Decision Making Medical Decision Making [facility] Narrative: This is a 69-year-old female history of hypertension presented hospital today for evaluation of rectal bleeding that started today. Patient endorses that she has been constipated recently. She does endorse to hemorrhoids as well. She had 2 hard bowel movement. Does not appear to be actively rectal bleeding at this time. Patient's blood pressure is stable. No signs of tachycardia or hypotension. We will check her CBC to check her hemoglobin level at this time. I did consider obtaining CT abdomen and pelvis. However she patient's abdomen was nontender upon exam on distraction. There is no sign of acute surgical abdomen at this time. Patient states she did have a colonoscopy within the last 5 years. It was negative. Discussed with patient that is unlikely she has colon cancer if she is follow up with her colon screening test. I suspect her rectal bleed this is from her hemorrhoids in setting of constipation. We will plan to give patient a dose of Senokot here. We will plan to give patient has hydrocortisone cream as well. Patient is medically stable at this time. Patient no longer has any rectal bleeding during her stay here. Hemoglobin level is appropriate and stable. I do not think patient is having hemorrhagic shock from rectal bleeding. We will plan to discharge patient with prescription for Senokot and hydrocortisone cream for hemorrhoids. Encouraged to follow up with her primary care doctor. She agrees and understands this plan in-person fertilizer supervisor was used for this encounter. Differential Diagnosis Differential Diagnoses: The differential diagnosis associated with the presentation includes Diverticular bleed, hemorrhoids, anal fissure, anal cancer, colon cancer Lab Data MDM Lab Attestation statement: I reviewed the patient's lab results. 05/03/25 12:12 Labs: Lab Results 05/03/25 Range/Units 12:12 WBC 8.3 (4.8-10.8) X10*3/uL RBC 4.55 (4.20-5.50) X10*6/uL Hgb 13.4 (12.0-16.0) g/dl Hct 39.6 (37.0-47.0) % MCV 87.0 (80.0-98.0) fL MCH 29.5 (27.0-33.0) pg MCHC 33.8 (31.0-35.0) g/dl RDW 13.2 (11.0-16.0) % Plt Count 272 (160-400) X10*3/uL MPV 9.9 (9.4-12.3) fL Immature Gran % (Auto) 0.4 (0.0-0.4) % Neut % (Auto) 65.4 (45-73) % Lymph % (Auto) 24.1 (20-40) % [place] % (Auto) 9.0 (2-11) % Eos % (Auto) 0.7 (0-4) % Baso % (Auto) 0.4 (0-2) % Lymph # (Auto) 2.0 (1.2-4.9) X10*3/uL [place] # (Auto) 0.8 (0.1-1.2) X10*3/uL Eos # (Auto) 0.1 (0.0-0.4) X10*3/uL Baso # (Auto) 0.0 (0.0-0.2) X10*3/uL Abs Immat Gran (auto) 0.03 (0.00-0.03) X10*3/uL Absolute Neuts (auto) 5.4 (2.0-8.3) x10*3/uL Absolute Nucleated RBC 0.000 (0.0-0.012) X10*3/uL Nucleated RBC % (auto) 0.0 (0.0-0.2) /100WBC Discharge Plan Discharge Clinical Impression: Hemorrhoids Qualifiers: Hemorrhoid type: unspecified Qualified Code(s): K64.9 - Unspecified hemorrhoids Patient Disposition: Home, Self-Care Instructions: Malini Escobar (DC) Additional Instructions: Follow up with your primary care doctor for your hemorrhoids. If they persist, you may benefit from banding of your hemorrhoids. Prescriptions: New hydrocortisone 2.5 % cream 1 appl topical BID PRN (Reason: skin irritation) Qty: 20 0RF senna 8.6 mg capsule 8.6 mg PO DAILY 30 Days Qty: 30 0RF No Action dicyclomine 20 mg tablet 20 mg PO QID PRN (Reason: pain) Qty: 14 0RF amoxicillin 500 mg capsule 500 mg PO TID Qty: 15 0RF pregabalin 25 mg capsule 50 mg PO BID lactulose 20 gram packet 20 g PO DAILY PRN (Reason: constipation) Qty: 14 0RF Print Language: Austrian
[2025-05-03 12:00] VITALS: BP 179/80; PULSE 74; RESP 19; TEMP 36.7; O2SAT 99
--- OUTSIDE RECORDS SUMMARY | 2025-05-03 12:00 | XMS_ITS ---
Author Name [facility] Organization Unknown Care Team Organization Name Specialty Phone Email Start Date End Da ermias [facility] ANDREW Primary Care 02/18/2023 04/30/2024 [facility] KANCHAN AMADOR Primary Care 07/20/2022 4
--- OUTSIDE RECORDS SUMMARY | 2025-05-03 12:00 | XMS_ITS | Clinical Summary ---
Author Organization [facility] [address] [facility] Address [address] [place] [address] Phone Care Team Providers Care Proof Load Mechanic Name Role Phone Charu Schroeder MD Primary Care Prov ider Allergies Active Allergy Reactions Criticality Noted Date Comments Other 06/09/2022 Seasonal Allergies Medications lancets (OneTouch Delica Plus Lancet) 33 gauge 1 Each by Does not apply route daily. 4 Active blood sugar diagnostic (FreeStyle Lite Strips) test strip 1 Units by In Vitro route daily. E11.49 4 Active dicyclomine (BENTYL) 10 mg capsule Take 1 Capsule by mouth 4 times daily (before meals and nightly). 4 Active senna (SENOKOT) 8.6 mg tablet Take 1 tablet (8.6 mg total) by mouth 1 (one) time each day. 4 Active simethicone (MYLICON) 125 mg chewable tablet Take 1 Tablet by mouth every 6 hours as needed for Flatulence. 4 Active loperamide (IMODIUM) 2 mg capsule Take 1 Capsule by mouth 4 times daily as needed for Diarrhea. Use for stool urgency 4 Active budesonide-for moteroL (SYMBICORT) 80-4.5 mcg/actuation inhaler Inhale 2 Puffs into the lungs 2 times daily for 90 days. 4 Active ketotifen (ZADITOR) 0.025 % ophthalmic solution INSTILL 1 DROP INTO THE EYE(S) EVERY 12 HOURS OTC NOT COVERED 3 Active albuterol HFA (PROAIR HFA ; PROVENTIL HFA ; VENTOLIN HFA) 90 mcg/actuation inhaler Inhale 2 Puffs into the lungs every 6 hours as needed for Cough or Wheezing. 3 Active blood-glucose meter kit Use to check blood sugar once daily 3 Active fexofenadine HCl (ALEXANDREA ORAL) Take by mouth. Active atorvastatin (LIPITOR) 80 mg tablet Take 1 tablet (80 mg total) by mouth 1 (one) time each day. 90 each 3 5 026 Active lisinopriL (PRINIVIL,ZEST RIL) 5 mg tablet Take 1 tablet (5 mg total) by mouth 1 (one) time each day. 90 each 3 5 026 Active melatonin 3 mg capsule Take 1 capsule by mouth at bedtime as needed (insomnia). 90 capsule 1 5 025 Active pregabalin (LYRICA) 25 mg capsule TAKE 2 CAPSULES BY MOUTH TWICE A DAY 120 capsule 1 5 Active pregabalin (LYRICA) 25 mg capsule TAKE 2 CAPSULES BY MOUTH TWICE A DAY 120 capsule 1 5 025 Discontinued Active Problems Problem Noted Date Diagnosed Date Wears hearing aid in left ear 03/26/2024 Thickened endometrium 12/20/2023 Osteopenia 12/13/2023 H. pylori infection 12/31/2021 Breast pain 12/10/2021 Overview (06/19/2024): Last Assessment & Plan: Reassured patient that no lumps palpable in areas of discomfort on exam today. Reviewed mammogram from 3 months ago was normal. Patient encouraged to avoid caffiene and fatty foods and wear a tight fitting bra. She was encouraged to return for further evaluation if symptoms do not improve in the next few months. Urinary incontinence, mixed 12/10/2021 Overview (06/19/2024): Last Assessment & Plan: Patient encouraged to continue Oxybutynin. She accepted referral to urogynecology for further evaluation and treatment today. Urinary incontinence 07/31/2020 Fibromyalgia 05/17/2019 CTS (carpal tunnel syndrome) 04/05/2019 Overview (06/19/2024): Mild, s/p NCS 03/2019 follows with [facility] Positive TERE (antinuclear antibody) 02/28/2019 Vitamin D deficiency 11/14/2018 Abnormal mammogram of right breast 09/20/2018 Overview (06/19/2024): Right breast Deaf 09/20/2018 Overview (06/19/2024): On Disability Hypercholesteremia 09/20/2018 Hypertension 09/20/2018 Assessment & Plan (11/19/2024 8:36 AM EDT): Type 2 diabetes mellitus wit h peripheral neuropathy ([facility] V24, [facility] V28) 09/20/2018 Assessment & Plan (11/19/2024 8:36 AM EDT): Orders: Comprehensive metabolic panel; Future Hemoglobin A1c; Future Lipid panel with reflex to direct LDL; Future Hemoglobin A1c; Future Encounters Date Type Department Care Team Description 02/25/2025 2:09 PM EDT Anesthesia Event [facility] Endoscopy [address] [place] [address] Brett Julio DO 02/25/2025 12:44 PM EDT - 02/25/2025 11:59 PM EDT Hospital Encounter [facility] Endoscopy [address] [place] [id number] Toribio Logan MD Sobo, Kathleen, CRNA Hx of colonic polyps Discharge Disposition: Home or Self Care from Last 3 Months Immunizations Name Administration Dates Next Due Influenza Quadravalent, MDCK , 0.5ml, preservative free (Flucelvax) 6mo and older 08/12/2021 Influenza trivalent, 0.5mL ( Fluzone High-dose) 65yo and older 06/27/2023 Pfizer (ages 12 & older) Bivalent, COVID-19 06/13 Pfizer SARS-CoV-2 COVID-19, mRNA, LNP-S, preservative free 09/10/2021 Pneumococcal conjugate 13 va lent (Prevnar 13, PCV13) 2mo and older 01/18/2019 Pneumococcal polysaccharide 23 valent (Pneumovax 23) 2yo and older 02/10/2022 Tdap Tetanus diptheria acell ular pertussis (Boostrix; Adacel) 7yo and older 01/18/2019 Surgical History Surgery Date Site/Laterality Comments BREAST LUMPECTOMY PROCEDURE: ---- BREAST LUMP BIOPSY ---- BREAST BIOPSY 02/2018 Right PROCEDURE: BX BREAST; PERC NEEDLE CORE W/IMAG GUID; COMMENT: bxs x 2-benign Medical History Medical History Date Comments Hypertension 09/20/2018 DX:Hypertension Type 2 diabetes mellitus (CM S/HCC V24, CMS/HCC V28) 09/20/2018 DX:Type 2 diabetes mellitus (HCC) Hypercholesteremia 09/20/2018 DX:Hyperchole steremia Abnormal mammogram of right breast 09/20/2018 DX:Abnormal mammogram of right breast; COMMENT: Right breast Deaf 09/20/2018 DX:Deaf; COMMENT : On Disability CTS (carpal tunnel syndrome) 04/05/2019 DX: CTS (carpal tunnel syndrome); COMMENT: Mild, s/p NCS 03/2019 follows with [facility] Osteopenia 12/13/2023 DX:Osteopenia Gassiness DX:Gassiness Abdominal cramping DX:Abdominal cramping Irritable bowel syndrome DX:Irri table bowel syndrome Change in bowel habits DX:Change in bowel habits Wears hearing aid in left ear 03/26/2024 DX :Wears hearing aid in left ear Family History Medical History Relation Name Comments Colon cancer Maternal Grandmother Diabetes Mother CVA, HTN, colon cancer Colon cancer Uncle Breast cancer Neg Hx Relation Name Status Comments Father Maternal Grandmother Mother Uncle Alive Social History Tobacco Use Types Packs/Day Years Used Date Smoking Tobacco: Never Smokeless Tobacco: Never Alcohol Use Standard Drinks/Week Comments No 0 (1 standard drink = 0.6 oz pur e alcohol) Housing Instability Answer Date Recorde d Are you worried that in the next 2 months you may not have stable housing? No 11/19/2024 Food Access & Nutrition Answer Date Rec orded Do you have access to a vari ety of food including fruits and vegetables? Yes 11/19/2024 Access to Healthcare Answer Date Record ed Within the last 3 months, ho w many times did you visit the emergency department for your medical care? 1 11/19/2024 Financial Risk Answer Date Recorded How hard is it for you to pa y for the very basics like food, housing, medical care, and air conditioning / heating? Not very hard 11/19/2024 Transportation Answer Date Recorded Has the lack of transportati on kept you from meetings, work, or from getting things needed for daily living? No Has the lack of transportati on kept you from medical appointments or from getting medications? No 11/19/2024 Social Isolation Answer Date Recorded How often do you feel lonely or isolated from th ose around you? Never 11/19/2024 Food Risk Answer Date Recorded Within the past 12 months we worried whether our food would run out before we got money to buy more. Never true 11/19/2024 Within the past 12 months th e food we bought just didn't last and we didn't have money to get more. Never true 11/19/2024 Living Situation Answer Date Recorded What is your living situation? 0 11/19/2024 Interpersonal Safety Answer Date Record ed Physical Abuse 02/25/2025 Verbal Abuse 02/25/2025 Comments No Sex and Gender Information Value Date Recorded Sex Assigned at Not on file Legal Sex Female 9:51 AM EST Gender Identity Not on file Sexual Orientation Not on file Obstetrics History Last Filed Vital Signs Vital Sign Reading Time Taken Comments Blood Pressure 141/65 02/25/2025 2:48 PM EDT Pulse 88 02/25/2025 2:48 PM EDT Temperature 36.7 C (98 F) 02/25/2025 2:28 PM EDT Respiratory Rate 18 02/25/2025 2:48 PM EDT Oxygen Saturation 98% 02/25/2025 2:48 PM EDT Inhaled Oxygen Concentration - - Weight 65.3 kg (144 lb) 02/25/2025 1:36 PM EDT Height 152.4 cm (5') 02/25/2025 1:36 PM EDT Body Mass Index 28.12 02/25/2025 1:36 PM EDT Plan of Treatment Upcoming Encounters Date Type Department Care Team (Late st Contact Info) Description 08/05/2025 11:00 AM EST Appointment Radiology Department - [address] [phone] Health Maintenance Due Date Last Done Comments Zoster Vaccines (1 of 2) 2006 RSV Immunization Adult Patients (1 - Risk 60-74 years 1-dose series) 2016 COVID-19 Vaccine ( season) 2024 07/01/2022, 09/10/2021, 12/08/2020 Diabetes: Annual Urine Albumin-Creatinine Ratio (uACR) 03/26/2025 03/26/2024 Diabetes: Annual Foot Exam 03/26/2025 03/26/2024 Influenza Vaccine (#1) 2025 06/27/2023, 2020 Diabetes: Blood Sugar Control Test (HGBA1C) 08/21/2025 02/19/2025, 11/19/2024, 03/26/2024, Additional history exists Medicare Annual Wellness Visit 11/19/2025 11/19/2024 Social Influencers of Health Screening 11/19/2025 11/19/2024 Breast Cancer Screening 12/11/2025 12/12/19 24, 08/20/2022, 08/12/2021, Additional history exists Diabetes: Annual GFR (Glomerular Filtration Rate) 02/19/2026 02/19/2025, 03/26/2024, 03/26/2024, Additional history exists Hypertension/CHF/CAD Annual BMP Blood Test 02/19/2026 02/19/2025, 03/26/2024, 03/26/2024, Additional history exists Falls Risk Assessment 02/25/2026 02/25/2025, 025 Diabetes: Annual Retina Eye Exam 03/04/2026 03/04/2025 DTaP,Tdap,and Td Vaccines (2 - Td or Tdap) 01/18/2029 01/18/2019 Cholesterol Screening (Lipid Panel) 02/19/2030 02/19/2025, 03/26/2024, 03/26/2024 Colorectal Cancer Screening: Colonoscopy 02/25/2030 02/25/2025, 05/01/2019, 05/01/2019 Osteoporosis Screening (Bone Density Screening) 12/11/2033 12/12/2023 Hepatitis C Screening Completed 12/10/2020 Pneumococcal Vaccine: 50+ Years Completed 02/10/2022, 01/18/2019 Depression Screening Completed 11/19/2024, 03/26/20 24 HIB Vaccines Aged Out No longer eligi ble based on patient's age to complete this topic HPV Vaccines Aged Out No longer eligi ble based on patient's age to complete this topic Hepatitis A Vaccines Aged Out No long er eligible based on patient's age to complete this topic Hepatitis B Vaccines Aged Out No long er eligible based on patient's age to complete this topic IPV Vaccines Aged Out No longer eligi ble based on patient's age to complete this topic MMR Vaccines Aged Out No longer eligi ble based on patient's age to complete this topic Meningococcal ACWY Vaccine Aged Out N o longer eligible based on patient's age to complete this topic Meningococcal B Vaccine Aged Out No l onger eligible based on patient's age to complete this topic RSV Immunization Patients Under 20 months Aged Out No longer eligible based on patient's age to complete this topic Varicella Vaccines Aged Out No longer eligible based on patient's age to complete this topic Procedures Procedure Name Priority Date/Time Associated Diagnosis Comments EXTERNAL DIABETIC RETINA EYE EXAM 03/04/2025 COLONOSCOPY Routine 02/25/2025 2:27 PM EDT Hx of colonic polyps TISSUE EXAM Routine 02/25/2025 2:18 PM EDT Hx of colonic polyps COMPREHENSIVE METABOLIC PANEL Routine 02/19/2025 8:56 AM EDT Type 2 diabetes mellitus with peripheral neuropathy (CMS/HCC V24, CMS/HCC V28) HEMOGLOBIN A1C Routine 02/19/2025 8:56 AM EDT Type 2 diabetes mellitus with peripheral neuropathy (CMS/HCC V24, CMS/HCC V28) LIPID PANEL WITH REFLEX TO DIRECT LDL Routine 02/19/2025 8:56 AM EDT Type 2 diabetes mellitus with peripheral neuropathy (CMS/HCC V24, CMS/HCC V28) DEPRESSION SCREENING Routine 03/26/2024 URINE ALBUMIN CREATININE RATIO Routine 03/26/2024 DIABETES FOOT EXAM Routine 03/26/2024 SCREENING MAMMOGRAPHY BI 2-VIEW BREAST INC CAD Routine 12/12/2023 11:16 AM EDT Encounter for screening mammogram for malignant neoplasm of breast DXA BONE DENSITY STUDY 1+ SITS AXIAL SKEL Routine 12/12/2023 10:28 AM EDT Encounter for general adult medical examination without abnormal findings HEPATITIS C SCREENING Routine 12/10/2020 from Last 3 Months or Most Recently Relevant to Health Maintenance Results * External Diabetic Retina Eye Exam Report (03/04/2025) Anatomical Region Laterality Modality Ultrasound us Provider [facility] PROCEDURES Final Result * COLONOSCOPY Anesthesia - MAC; [facility] ENDOSCOPY (02/25/2025 2:27 PM EDT) Anatomical Region Laterality Modality Endoscopy 02/25/2025 2:10 PM EDT Impressions 02/25/2025 2:30 PM EDT - Preparation of the colon was fair. - One 5 mm polyp in the transverse colon, removed with a cold snare. Resected and retrieved. - Diverticulosis in the entire examined colon. - Internal hemorrhoids. - The examination was otherwise normal. Recommendation: - Await pathology results. - Repeat colonoscopy in 5 years for surveillance. Narrative 02/25/2025 2:30 PM EDT [facility] GI Patient Name: Rebecca Cruz Procedure Date: 02/25/2025 2:10 PM Date of : 1955 Age: 69 Gender: Female Note Status: Finalized Attending MD: Toribio Logan MD, Procedure Date No Time: 02/25/2025 Procedure: Colonoscopy Indications: High risk colon cancer surveillance: Personal history of colonic polyps, Last colonoscopy: April 2019 Providers: Toribio Logan MD Referring MD: Toribio Logan MD Medicines: Monitored Anesthesia Care Complications: No immediate complications. Estimated blood loss: Minimal. Estimated Blood Loss: Estimated blood loss was minimal. Procedure: Pre-Anesthesia Assessment: - Prior to the procedure, a History and Physical was performed, and patient medications and allergies were reviewed. The patient is competent. The risks and benefits of the procedure and the sedation options and risks were discussed with the patient. All questions were answered and informed consent was obtained. Patient identification and proposed procedure were verified by the physician, the nurse, the intelligence support officer and the internal medicine veterinary technician in the pre-procedure area in the endoscopy suite. Mental Status Examination: alert and oriented. Airway Examination: normal oropharyngeal airway and neck mobility. Respiratory Examination: clear to auscultation. CV Examination: normal. Prophylactic Antibiotics: The patient does not require prophylactic antibiotics. Prior Anticoagulants: The patient has taken no anticoagulant or antiplatelet agents. ASA Grade Assessment: III - A patient with severe systemic disease. After reviewing the risks and benefits, the patient was deemed in satisfactory condition to undergo the procedure. The anesthesia plan was to use monitored anesthesia care (MAC). Immediately prior to administration of medications, the patient was re-assessed for adequacy to receive sedatives. The heart rate, respiratory rate, oxygen saturations, blood pressure, adequacy of pulmonary ventilation, and response to care were monitored throughout the procedure. The physical status of the patient was re-assessed after the procedure. After I obtained informed consent, the scope was passed under direct vision. Throughout the procedure, the patient's blood pressure, pulse, and oxygen saturations were monitored continuously. The Olympus Colonoscope was introduced through the anus and advanced to the cecum, identified by appendiceal orifice and ileocecal valve. The colonoscopy was performed without difficulty. The patient tolerated the procedure well. The quality of the bowel preparation was fair. Findings: The perianal and digital rectal examinations were normal. A 5 mm polyp was found in the transverse colon. The polyp was sessile. The polyp was removed with a cold snare. Resection and retrieval were complete. Estimated blood loss was minimal. Many small-mouthed diverticula were found in the entire colon. Internal hemorrhoids were found during retroflexion. The hemorrhoids were Grade I (internal hemorrhoids that do not prolapse). The exam was otherwise without abnormality. Procedure Code(s): --- Professional --- 54888, Colonoscopy, flexible; with removal of tumor(s), polyp(s), or other lesion(s) by snare technique Diagnosis Code(s): --- Professional --- D12.3, Benign neoplasm of transverse colon (hepatic flexure or splenic flexure) CPT copyright 2020 [employer]. All rights reserved. The codes documented in this report are preliminary and upon field installation technician review may be revised to meet current compliance requirements. Toribio Logan MD 02/25/2025 2:29:56 PM This report has been signed electronically.Toribio Logan MD Number of Addenda: 0 Note Initiated On: 02/25/2025 2:10 PM Scope Withdrawal Time: 0 hours 6 minutes 2 seconds Scope In: 2:14:29 PM Scope Out: 2:26:52 PM Endoscopy Department at [facility] - [address] [place] [phone] Procedure Note Toribio Logan MD - 02/25/2025 [facility] GI Patient Name: Rebecca Cruz Procedure Date: 02/25/2025 2:10 PM Date of : 1955 Age: 69 Gender: Female Note Status: Finalized Attending MD: Toribio Logan MD, Procedure Date No Time: 02/25/2025 Procedure: Colonoscopy Indications: High risk colon cancer surveillance: Personalhistory of colonic polyps, Last colonoscopy: April 2019 Providers: Toribio Logan MD Referring MD: Toribio Logan MD Medicines: Monitored Anesthesia Care Complications: No immediate complications. Estimated blood loss: Minimal. Estimated Blood Loss: Estimated blood loss was minimal. Procedure: Pre-Anesthesia Assessment: - Prior to the procedure, a History and Physicalwas performed, and patient medications and allergieswere reviewed. The patient is competent. The risks and benefits of the procedure and the sedation optionsand risks were discussed with the patient. Allquestions were answered and informed consent was obtained. Patient identification and proposed procedure were verified by the physician, the nurse, theanesthetist and the internal medicine veterinary technician in the pre-procedure area in the endoscopy suite. Mental Status Examination: alertand oriented. Airway Examination: normal oropharyngeal airway and neck mobility. Respiratory Examination: clear to auscultation. CV Examination: normal. Prophylactic Antibiotics: The patient does notrequire prophylactic antibiotics. Prior Anticoagulants: The patient has taken no anticoagulant or antiplatelet agents. ASA Grade Assessment: III - A patient with severe systemic disease. After reviewing the risksand benefits, the patient was deemed in satisfactory condition to undergo the procedure. The anesthesia plan was to use monitored anesthesia care (MAC). Immediately prior to administration of medications, the patient was re-assessed for adequacy to receive sedatives. The heart rate, respiratory rate, oxygen saturations, blood pressure, adequacy of pulmonary ventilation, and response to care were monitored throughout the procedure. The physical status ofthe patient was re-assessed after the procedure. After I obtained informed consent, the scope was passed under direct vision. Throughout theprocedure, the patient's blood pressure, pulse, and oxygen saturations were monitored continuously. TheOlympus Colonoscope was introduced through the anus and advanced to the cecum, identified by appendiceal orifice and ileocecal valve. The colonoscopy was performed without difficulty. The patient tolerated the procedure well. The quality of the bowel preparation was fair. Findings: The perianal and digital rectal examinations were normal. A 5 mm polyp was found in the transverse colon. The polyp was sessile. The polyp was removed with acold snare. Resection and retrieval were complete. Estimated blood loss was minimal. Many small-mouthed diverticula were found in the entire colon. Internal hemorrhoids were found duringretroflexion. The hemorrhoids were Grade I (internal hemorrhoids that do not prolapse). The exam was otherwise without abnormality. Procedure Code(s): --- Professional --- 72480, Colonoscopy, flexible; with removal of tumor(s), polyp(s), or other lesion(s) by snare technique Diagnosis Code(s): --- Professional --- D12.3, Benign neoplasm of transverse colon (hepatic flexure or splenic flexure) CPT copyright 2020 [employer]. All rights reserved. The codes documented in this report are preliminary and upon field installation technician reviewmay be revised to meet current compliance requirements. Toribio Logan MD 02/25/2025 2:29:56 PM This report has been signed electronically.Toribio Logan MD Number of Addenda: 0 Note Initiated On: 02/25/2025 2:10 PM Scope Withdrawal Time: 0 hours 6 minutes 2 seconds Scope In: 2:14:29 PM Scope Out: 2:26:52 PM Endoscopy Department at [facility] - [address] [place] [phone] IMPRESSION: - Preparation of the colon was fair. - One 5 mm polyp in the transverse colon, removedwith a cold snare. Resected and retrieved. - Diverticulosis in the entire examined colon. - Internal hemorrhoids. - The examination was otherwise normal. Recommendation: - Await pathology results. - Repeat colonoscopy in 5 years for surveillance. us Toribio Logan MD GI~PROCEDURE ORDERABLES Fin al Result * Tissue exam (02/25/2025 2:18 PM EDT) Final Diagnosis Transverse colon polyp: Tubular adenoma 02/26/2025 11:24 AM EDT [facility] Gross Description A. Large Intestine, Transverse Colon, polyp x1: Labeled trans colon polyp x 1 . Received in formalin are three irregular pink-white mucosal tissue fragments, ranging from less than 0.1 cm to 0.4 cm in greatest dimension, which are wrapped in paper and submitted in toto in one cassette, three pieces, multiple levels on one slide. MARIANA 02/26/2025 11:24 AM EDT [facility] Disclaimer Unless otherwise specified, all tissue is 10% NB formalin fixed and paraffin embedded. 02/26/2025 11:24 AM EDT [facility] Tissue Transverse colon structure / Unknown 02/25/2025 2:18 PM EDT 02/25/2025 4:10 PM EDT us Toribio Logan MD LAB PATHOLOGY ORDERABLES Fi nal Result [facility] [address] [place] [address], [place] [phone] * (ABNORMAL) Lipid panel with reflex to direct LDL (02/19/2025 8:56 AM EDT) Cholesterol 215(H) 0 - 200 mg/dL LAB CHEMISTRY METHOD 02/19/2025 12:55 PM EDT [facility] Triglycerides 206(H) 0 - 150 mg/dL LAB CHEMISTRY METHOD 02/19/2025 12:55 PM EDT [facility] HDL 58 >=40 mg/dL LAB CHEMISTRY METHOD 02/19/2025 12:55 PM EDT [facility] LDL Calculated 116(H) 0 - 100 mg/dL LAB CHEMISTRY METHOD 02/19/2025 12:55 PM EDT [facility] VLDL Cholesterol Alex 41.2 mg/dL LAB CHEMISTRY METHOD 02/19/2025 12:55 PM EDT [facility] Non HDL Chol. (LDL+VLDL) 157(H) <145 mg/dL LAB CHEMISTRY METHOD 02/19/2025 12:55 PM EDT [facility] Chol/HDL Ratio 3.7 0.0 - 4.4 LAB CHEMISTRY METHOD 02/19/2025 12:55 PM [facility] Blood Venous blood specimen / Unknown Venipuncture / Unknown 02/19/2025 8:56 AM EDT 02/19/2025 8:56 AM EDT us Charu Schroeder MD LAB BLOOD ORDERABL ES Final Result [facility] [address] [place] [address], * Hemoglobin A1c (02/19/2025 8:56 AM EDT) Hemoglobin A1C 6.2 <6.5 % LAB CHEMISTRY METHOD 02/19/2025 2:03 PM EDT [facility] Mean Bld Glu Estim. 131 mg/dL LAB CHEMISTRY METHOD 02/19/2025 2:03 PM [facility] Blood Venous blood specimen / Unknown Venipuncture / Unknown 02/19/2025 8:56 AM EDT 02/19/2025 8:56 AM EDT us Charu Schroeder MD LAB BLOOD ORDERABL ES Final Result [facility] [address] [place] [address], [place] [phone] * (ABNORMAL) Comprehensive metabolic panel (02/19/2025 8:56 AM EDT) Sodium 140 133 - 145 mmol/L LAB CHEMISTRY METHOD 02/19/2025 12:55 PM [facility] [facility] Potassium 4.4 3.5 - 5.5 mmol/L LAB CHEMISTRY METHOD 02/19/2025 12:55 PM [facility] Chloride 109 96 - 110 mmol/L LAB CHEMISTRY METHOD 02/19/2025 12:55 PM [facility] CO2 27 21 - 32 mmol/L LAB CHEMISTRY METHOD 02/19/2025 12:55 PM [facility] Anion Gap 4 3 - 11 LAB CHEMISTRY METHOD 02/19/2025 12:55 PM [facility] Glucose 104(H) 70 - 100 mg/dL LAB CHEMISTRY METHOD 02/19/2025 12:55 PM [facility] BUN 12 5 - 25 mg/dL LAB CHEMISTRY METHOD 02/19/2025 12:55 PM [facility] Creatinine 0.72 0.50 - 1.10 mg/dL LAB CHEMISTRY METHOD 02/19/2025 12:55 PM [facility] eGFR 91 >=60 mL/min/1. 73m2 LAB CHEMISTRY METHOD 02/19/2025 12:55 PM [facility] Comment:Calculation based on the Chronic Kidney Disease Epidemiology Collaboration (CKD-EPI) equation refit without adjustment for race. BUN/Creatinine Ratio 16.7 LAB CHEMISTRY METHOD 02/19/2025 12:55 PM [facility] Calcium 9.7 8.5 - 10.5 mg/dL LAB CHEMISTRY METHOD 02/19/2025 12:55 PM [facility] AST (SGOT) 17 10 - 42 unit/L LAB CHEMISTRY METHOD 02/19/2025 12:55 PM [facility] ALT (SGPT) 34 10 - 60 unit/L LAB CHEMISTRY METHOD 02/19/2025 12:55 PM [facility] Alkaline Phosphatase 136(H) 42 - 121 unit/L LAB CHEMISTRY METHOD 02/19/2025 12:55 PM [facility] Total Protein 7.0 6.0 - 8.0 g/dL LAB CHEMISTRY METHOD 02/19/2025 12:55 PM [facility] Albumin 3.9 3.2 - 5.0 g/dL LAB CHEMISTRY METHOD 02/19/2025 12:55 PM [facility] Total Bilirubin 0.7 0.0 - 1.4 mg/dL LAB CHEMISTRY METHOD 02/19/2025 12:55 PM [facility] Blood Venous blood specimen / Unknown Venipuncture / Unknown 02/19/2025 8:56 AM EDT 02/19/2025 8:56 AM EDT Charu Schroeder MD LAB BLOOD ORDERABL ES Final Result [facility] [address] [place] [address], * Urine Albumin Creatinine Ratio (03/26/2024) Urine Albumin Creatinine Ratio abstracted Historical Provider HEALTH MAINTENANCE Final Result * Hm Depression Screening (03/26/2024) Depression Screening abstracted Result [facility] Historical Provider MD HEALTH MAINTENANCE Final Result * Diabetes Foot Exam (03/26/2024) Diabetes: Annual Foot Exam abstracted Result [facility] Historical Provider HEALTH MAINTENANCE Final Result * SCREENING MAMMOGRAPHY BI 2-VIEW BREAST INC CAD (12/12/2023 11:16 AM EDT) Anatomical Region Laterality Modality Radiographic Nroah ging 08/20/2022 10:4 0 AM EST Narrative 12/12/2023 8:41 PM EDT This is a summary report. The complete report is available in the patient's medical record. If you cannot access the medical record, please contact the sending organization for a detailed fax or copy. Exam: Screening mammogram Findings: Digital bilateral full-field screening mammography is performed with tomosynthesis and interpreted with the aid of computer-aided detection. Comparison is made with 08/20/2022 and as far back as 01/30/2019. Breast parenchyma is composed of scattered fibroglandular densities. No new suspicious mass, architectural distortion, or suspicious calcifications. Impression: No mammographic evidence of malignancy. BI-RADS 1 - negative Procedure Note Erin Becker MD - 04/30/2024 This is a summary report. The complete report is available in thepatient's medical record. If you cannot access the medical record, pleasecontact the sending organization for a detailed fax or copy. Exam: Screening mammogram Findings: Digital bilateral full-field screening mammography is performedwith tomosynthesis and interpreted with the aid of computer-aideddetection. Comparison is made with 08/20/2022 and as far back as01/30/2019. Breast parenchyma is composed of scattered fibroglandular densities. Nonew suspicious mass, architectural distortion, or suspiciouscalcifications. Impression: No mammographic evidence of malignancy. BI-RADS 1 - negative Result [facility] Charu Schroeder MD IMG XR PROCEDURES Final Result * DXA BONE DENSITY STUDY 1+ SITS AXIAL SKEL (12/12/2023 10:28 AM EDT) Anatomical Region Laterality Modality Bone Densitometr y 03/25/2023 8:33 AM EDT Narrative 12/12/2023 9:02 PM EDT BONE DENSITY SCAN (DEXA): FINDINGS: Lumbar Spine T-score is -2.1. (SD relative to 20-29 y/o adult) Z-score is -0.1. (SD relative to age matched peers) This is considered osteopenia by WHO criteria. Left Hip T-score is -1.1. Z-score is 0.5. This is considered osteopenia by WHO criteria. Comparison exam(s): None. IMPRESSION: IMPRESSION: Osteopenia by WHO criteria. This patient has an 8.6% risk of major osteoporotic fracture and a 0.8% risk of hip fracture over the next 10 years. (World Health Organization Fracture Risk Assessment) The [facility] Department of Internal Medicine recommends using National Osteoporosis Foundation (NOF) guidelines in treatment decisions related to osteoporosis. NOF guidelines suggest considering treatment for postmenopausal women and men aged 50 or older presenting with the following: History of hip or vertebral fracture. T-score = -2.5 (DXA) at the femoral neck, total hip, or spine, after appropriate evaluation to exclude secondary causes. Low bone mass (T-score between -1.0 and -2.5 at the femoral neck or spine) AND a 10-year probability of a hip fracture = 3% OR a 10-year probability of a major osteoporosis-related fracture = 20% based on the [place]-adapted WHO algorithm Please note that all treatment decisions require clinical judgment and consideration of individual patient factors, including patient preferences, co-morbidities, previous drug use, risk factors not captured in the FRAX model (e.g., frailty, falls, vitamin D deficiency, increased bone turnover, interval significant decline in bone density) and possible under- or over-estimation of fracture risk by FRAX. Optional alternative screening schedule based on margaret Antonio., [facility] September 30, 2011 for patients with osteopenia (based on hip BMD T-score) is as follows: * advanced osteopenia (T scores -2.00 to -2.49), BMD testing every year * moderate osteopenia (T scores -1.50 to -1.99), BMD testing every 5 years mild osteopenia or normal BMD (T scores -1.50 and higher), BMD testing every 15 years Procedure Note Erin Becker MD - 04/30/2024 BONE DENSITY SCAN (DEXA): FINDINGS: Lumbar Spine T-score is -2.1. (SD relative to 20-29 y/o adult) Z-score is -0.1. (SD relative to age matched peers) This is considered osteopenia by WHO criteria. Left Hip T-score is -1.1. Z-score is 0.5. This is considered osteopenia by WHO criteria. Comparison exam(s): None. IMPRESSION: IMPRESSION: Osteopenia by WHO criteria. This patient has an 8.6% risk of majorosteoporotic fracture and a 0.8% risk of hip fracture over the next 10 years. (World HealthOrganization Fracture Risk Assessment) The [facility] Department of Internal Medicine recommendsusing National Osteoporosis Foundation (NOF) guidelines in treatment decisions related toosteoporosis. NOF guidelines suggest considering treatment for postmenopausal women and menaged 50 or older presenting with the following: History of hip or vertebral fracture. T-score = -2.5 (DXA) at the femoral neck, total hip, or spine, afterappropriate evaluation to exclude secondary causes. Low bone mass (T-score between -1.0 and -2.5 at the femoral neck or spine)AND a 10-year probability of a hip fracture = 3% OR a 10-year probability of a majorosteoporosis-related fracture = 20% based on the [place]-adapted WHO algorithm Please note that all treatment decisions require clinical judgment andconsideration of individual patient factors, including patient preferences, co- morbidities,previous drug use, risk factors not captured in the FRAX model (e.g., frailty, falls, vitaminD deficiency, increased bone turnover, interval significant decline in bone density) andpossible under- or over-estimation of fracture risk by FRAX. Optional alternative screening schedule based on margaret Antonio., [facility] for patients with osteopenia (based on hip BMD T-score) is as follows: * advanced osteopenia (T scores -2.00 to -2.49), BMD testing every year * moderate osteopenia (T scores -1.50 to -1.99), BMD testing every 5years mild osteopenia or normal BMD (T scores -1.50 and higher), BMD testingevery 15 years Charu Schroeder MD IMG DXA PROCEDURES Final Result * Hepatitis C Screening (12/10/2020) [facility] Hepatitis C Screening abstracted Historical Provider MD HEALTH MAINTENANCE Final Result from Last 3 Months or Most Recently Relevant to Health Maintenance Insurance [facility] MEDICARE Member Subscriber Plan / Payer (Ef fective 2023-Present) Name:Rebecca Cruz Relation to Subscriber:Self Name:Rebecca Cruz Payer ID:[id number] Group ID:[id number] Type:Not on file Address: [address] [facility] [place] [id number] Care Teams Proof Load Mechanic Relationship Specialty Start Date End Date Charu Schroeder MD [address] [place] [id number] PCP - General Internal Medicine 08/17/24
[2025-05-03 12:17] LABS: MANUAL DIFF FLAG NO
[2025-05-03 12:22] LABS: Hematocrit 39.6 % (37.0-47.0); Hemoglobin 13.4 g/dl (12.0-16.0); Imm Gran Abs Auto 0.03 X10*3/uL (0.00-0.03); Imm Gran Pct Auto 0.4 % (0.0-0.4); Lymphocytes Absolute Auto 2.0 X10*3/uL (1.2-4.9); Mean Corpuscular HGB Conc 33.8 g/dl (31.0-35.0); Mean Corpuscular Hemoglobin 29.5 pg (27.0-33.0); Mean Corpuscular Volume 87.0 fL (80.0-98.0); NRBC Abs Auto 0.000 X10*3/uL (0.0-0.012); NRBC Pct Auto 0.0 /100WBC (0.0-0.2); Platelet Count 272 X10*3/uL (160-400); Red Blood Count 4.55 X10*6/uL (4.20-5.50); White Blood Count 8.3 X10*3/uL (4.8-10.8)
[2025-05-03] MEDS: Hydrocortisone 2.5 % Rectal Cr 30 GM TUBE 1 APPL PR (12:39)
[2025-05-03 13:58] VITALS: BP 179/80; PULSE 74; RESP 19; TEMP 36.7; O2SAT 99
--- NOTE | 2025-05-03 13:58 | PC.NURSE ---
Pt with no further bleeding here Denies complaint NAD
[2025-05-03 14:00] VITALS: BP 155/78; PULSE 70; RESP 15; TEMP 36.7; O2SAT 100
== END 2025-05-03 14:03 | disposition home or self-care (01) ==
PROVIDERS: Emergency Provider Student in an Organized Health Care Education/Training Program; PCP Internal Medicine
DX: K64.9 Unspecified hemorrhoids (principal); R10.9 Unspecified abdominal pain; I12.9 Hypertensive chronic kidney disease with stage 1 through stage 4 chronic kidney disease, or unspecified chronic kidney disease; N18.2 Chronic kidney disease, stage 2 (mild)
CPT/HCPCS: 36415; 85025; 99283; 99284